=== PATIENT | female | born 1940 | race Caucasian/White ===

== ENCOUNTER → 2017-04-22 | Outpatient (CLI) | payer MEDICARE, BC ==
[~2017-04-22] MED LIST: ACET-1966 PO; DILT120T13 PO; DIPH0.5D12 IM; FLU180SY9 IM; FLU45SYR25 IM ONLY; GLUC-135 PO; IPRA15SP7; MULT-19 PO; PNEI IJ; PNEU0.5D3 IM; RIVA20TA PO; VIT-7 PO
== END ==
LOC: AUD 11:10
PROVIDERS: ATTEND Otolaryngology
DX: H90.3 Sensorineural hearing loss, bilateral (principal)
CPT/HCPCS: 92557; 92570

== ENCOUNTER → 2017-06-02 | Outpatient (CLI) | payer MEDICARE, BC ==
--- NOTE | 2017-06-02 11:55 | RADIOLOGY IMAGING REPORT ---
FACILITY: [facility] PATIENT NAME: Amanda Ewing : 1940 MR: [id number] V: [id number] EXAM DATE: ORDERING PHYSICIAN: GERBER PADILLA TECHNOLOGIST: Location: [facility] [place] Patient: Amanda Ewing : 1940 Visit/Account:[id number] Date of Sevice: 06/02/2017 DEXA Scan Clinical history: Osteopenia screening. Comparison: None available. LUMBAR SPINE: The bone mineral density (BMD) measured from L1-L4 correlates with a Z-score 1.8 and a T-score of -0. 3 which is Normal as defined by the World Health Organization. The corresponding risk of fracture in the lumbar spine is Not increased compared with a young adult reference population. HIP: Bone mineral density (BMD) measured in the Left total hip region correlates with a Z-score 1.0 and a T-score of -1.2 which is osteopenia as defined by the World Health Organization. The corresponding r isk of fracture in the hip is 2-3 times increased compared with a young adult reference population. T score left femoral neck -1 Bone mineral density (BMD) measured in the Femoral Neck region measures 0.902 g/cm2. Impression: 1. Lumbar spine: Normal. 2. Left Hip: Osteopenia. 3. Femoral Neck: Bone Mineral Density is 0.902 g/cm2 The next DEXA scan of this patient should include the following sites: L1-L4 and the left hip. FRAX? WHO Fracture Risk Assessment Tool link: <http://www.shef.ac.uk/FRAX/tool.jsp?locationValue=9> PLEASE NOTE: 1) The World Health Organization defines low BMD as follows: T-score Normal > -1 Osteopenia < -1 and > -2.5 Osteoporosis < -2.5 without fractures Established osteoporosis < -2.5 with fractures 2) In general, you may wish to consider: Diagnosis Treatment Follow-up DEXA Normal BMD Prevention 2-3 years Osteopenia Prevention/therapy 1-2 years Osteoporosis Therapy Yearly 3) Fracture risk estimated from the T-score is more accurate for vertebral fractures (often spontane ous) than for hip fractures. Report Dictated By: Opal Anderson MD at 06/02/2017 11:49 AM Report E-Signed By: Opal Anderson MD at 06/02/2017 11:50 AM PERLAN:ELIDA
--- NOTE | 2017-06-09 15:08 | RADIOLOGY IMAGING REPORT ---
FACILITY: [facility] [place] PATIENT NAME: SAM DRAKE : [id number] MR: [id number] V: [id number] EXAM DATE: ORDERING PHYSICIAN: GERBER PADILLA TECHNOLOGIST: Juanis Vallejo PROCEDURE:BILATERAL DIGITAL SCREENING MAMMOGRAM WITH CAD ASSISTED INTERPRETATION & 3D TOMOSYNTHESIS COMPARISON:Prior mammograms 01/01/15, 11/04/13, 07/08/12, 06/27/11. INDICATIONS:screening for malignant neoplasm of breast FINDINGS: Moderately heterogeneous fibroglandular tissue is seen throughout the breasts. The parenchymal pattern has remained stable allowing for difference in mammographic technique & patient positioning. There is no evidence of malignant appearing mass, malignant appearing calcifications or other secondary sign of malignancy in either breast. DIAGNOSTIC CATEGORY 1--NEGATIVE. RECOMMENDATIONS: ROUTINE MAMMOGRAM AND CLINICAL EVALUATION. IMPRESSION: BIRADS 1: Negative No significant abnormality is seen. Dictated by: Opal Anderson M.D. on 06/09/2017 at 10:39 Transcribed by: SHARI on 06/09/2017 at 10:54 Approved by: Opal Anderson M.D. on 06/09/2017 at 15:07 [facility]
== END ==
LOC: RAD 10:48
PROVIDERS: ATTEND Emergency Medicine
DX: Z13.820 Encounter for screening for osteoporosis (principal); Z12.31 Encounter for screening mammogram for malignant neoplasm of breast; M85.80 Other specified disorders of bone density and structure, unspecified site
CPT/HCPCS: 77063; 77067; 77080

== ENCOUNTER → 2017-07-04 | Outpatient (CLI) | payer MEDICARE, BC ==
[~2017-07-04] MED LIST changes: +AMOX875T60 PO
== END ==
LOC: LAB 10:34
PROVIDERS: ATTEND Emergency Medicine
DX: M85.80 Other specified disorders of bone density and structure, unspecified site (principal)
CPT/HCPCS: 36415; 82306

== ENCOUNTER → 2018-02-26 | Outpatient (CLI) | payer MEDICARE, BC ==
[~2018-02-26] MED LIST changes: +CEF300 PO; +OFLO10DR3 RIGHT EAR; +SULF-198 PO
[2018-02-26 09:48] LABS: PLATELET COUNT, AUTOMATED 283 K/uL (150-450)
[2018-02-26 11:24] LABS: LDL CHOLESTEROL 90 mg/dl
== END ==
LOC: LAB 09:30
PROVIDERS: ATTEND Emergency Medicine
DX: I48.0 Paroxysmal atrial fibrillation (principal)
CPT/HCPCS: 36415; 82040; 82247; 82310; 82374; 82435; 82465; 82565; 82947; 83718; 84075; 84132; 84155; 84295; 84450; 84460; 84478; 84520; 85025

== ENCOUNTER → 2018-03-03 | Outpatient (CLI) | payer MEDICARE, BC ==
[~2018-03-03] MED LIST changes: +PNEI IM; +VARI50KI IM
== END ==
LOC: LAB 13:50
PROVIDERS: ATTEND Emergency Medicine
DX: R20.8 Other disturbances of skin sensation (principal)
CPT/HCPCS: 36415; 82607

== ENCOUNTER → 2018-03-13 | Outpatient (CLI) | payer MEDICARE, BC | LOC: LAB 10:14 | PROVIDERS: ATTEND Emergency Medicine | DX: G62.9 Polyneuropathy, unspecified (principal); R20.8 Other disturbances of skin sensation | CPT/HCPCS: 36415; 84160; 84165; 84207; 84425; 86038 ==